=== PATIENT | male | born 1980 | race Asian ===

== ENCOUNTER 2018-05-03 10:15 | Emergency (ER) | payer OTHER ==
[~2018-05-03] VITALS: Ht 165.1 cm; Wt 81.7 kg
[~2018-05-03 10:15] MED LIST: ACET500 PO; Bactrim Ds Tab1 EACH PO; IBUP400 PO; INSU100I6 SC; Keflex500 MG PO
[2018-05-03] MEDS ORDERED: Bactrim Ds Tab1 EACH PO (10:52)
[2018-05-03] MEDS ORDERED: PIOG30 PO (10:53)
[2018-05-03] MEDS ORDERED: Glucophage1000 MG PO (10:53)
== END 2018-05-03 11:00 | disposition home or self-care (01) ==
LOC: ER 10:15
DX: L02.31 Cutaneous abscess of buttock (principal); E11.9 Type 2 diabetes mellitus without complications
CPT/HCPCS: 99282

== ENCOUNTER → 2021-10-31 | Outpatient (CLI) | payer OTHER ==
[~2021-10-31] MED LIST changes: +Glucophage1000 MG PO; +PIOG30 PO; +PROM25 PO; +Sudogest60 MG PO
== END ==
LOC: LAB 15:35 → LAB SHORT 15:35
DX: R30.0 Dysuria (principal)

== ENCOUNTER 2022-12-10 23:22 | Emergency (ER) | payer SELFPAY ==
[~2022-12-10] VITALS: Ht 165.1 cm; Wt 79.4 kg
[2022-12-10 23:28] VITALS: BP 174/98
[2022-12-11] MEDS ORDERED: TRAZ150T57 PO (01:02)
[2022-12-11] MEDS ORDERED: BUPROPION XL150 M1 PO (01:02)
[2022-12-11] MEDS ORDERED: LISINOPRIL2.5 MG PO (01:02)
[2022-12-11] MEDS ORDERED: PRAV20 PO (01:03)
[2022-12-11] MEDS ORDERED: GABA100 PO (01:03)
[2022-12-11] MEDS ORDERED: TRULICITY4.5 MG/0.5 SQ (01:05)
[2022-12-11] MEDS ORDERED: Prednisone10 MG PO (02:00)
== END 2022-12-11 02:12 | disposition home or self-care (01) ==
LOC: ER 23:22
DX: L25.9 Unspecified contact dermatitis, unspecified cause (principal); E11.9 Type 2 diabetes mellitus without complications; Z79.84 Long term (current) use of oral hypoglycemic drugs; Z79.52 Long term (current) use of systemic steroids
CPT/HCPCS: J7512

== ENCOUNTER 2025-02-19 06:38 | Day surgery (SDC) | payer OTHER ==
[2025-02-19] VITALS (16 sets, daily range): BP systolic 154–192; BP diastolic 89–115
[~2025-02-19] VITALS: Ht 164.8 cm; Wt 81.4 kg
[~2025-02-19 06:38] MED LIST changes: +BUPROPION XL150 M1 PO; +GABA100 PO; +LISINOPRIL2.5 MG PO; +PRAV20 PO; +Prednisone10 MG PO; +TRAZ150T57 PO; +TRULICITY4.5 MG/0.5 SQ
[2025-02-19] MEDS ORDERED: OZEMPIC1 MG/0.72 SC (07:19)
--- NOTE | 2025-02-19 07:27 | NUR ---
History, Chart, Medications and Allergies reviewed before start of procedure. Patient up to Ambulate independently. Gait steady. Pre-Op teaching done. Pt verbalizes understanding. Patient confirms NPO status and agrees with scheduled surgery. Patient states colon prep results light yellow. Patient States Post-Procedure ride home has been arranged.
--- NOTE | 2025-02-19 07:44 | NUR ---
02/19/25 0744 Idalia Enciso CONFIRMED AND REVIEWED H&P, MEDCICATIONS, ALLERGIES, MEDICAL HISTORY, RESPIRATORY HISTORY, VITAL SIGNS, 3-LEAD EKG, CONSENTS, AND PHYSICIAN ORDERS. PATIENT CONFIRMS NPO STATUS AND AGREES WITH SCHEDULED PROCEDURE. MONITOR INTACT WITH CONTINUOUS PULSE OXIMETRY, CAPNOGRAPHY, 3-LEAD EKG, INTERMITTENT BP. SUPPLEMENTAL O2 TO BE TITRATED THROUGHOUT PROCEDURE TO MAINTAIN O2 SATURATION ABOVE 90%. PATIENT DETERMINED TO BE ASA APPROPRIATE FOR PROPOFOL SEDATION PRIOR TO START OF PROCEDURE BY
--- NOTE | 2025-02-19 08:10 | NUR ---
Patient up to Ambulate independently. Gait steady. Discharge instructions reviewed with patient and spouse. Patient verbalizes understanding. Copy given to patient to take home. Patient States Post-Procedure ride home has been arranged. Discharged via wheelchair to private car for ride home. Pt belongings returned to pt.
== END 2025-02-19 08:17 | disposition home or self-care (01) ==
LOC: ORD 06:38 → ORSCMMR 06:38 → ORD 07:30
PROVIDERS: Internal Medicine Gastroenterology
PROC: 0DJD8ZZ Inspection of Lower Intestinal Tract, Via Natural or Artificial Opening Endoscopic (ICD-10-PCS; principal; 2025-02-19 07:30)
DX: Z12.11 Encounter for screening for malignant neoplasm of colon (principal); E11.9 Type 2 diabetes mellitus without complications; F31.9 Bipolar disorder, unspecified; Z79.85 Long-term (current) use of injectable non-insulin antidiabetic drugs; Z79.84 Long term (current) use of oral hypoglycemic drugs; Z79.899 Other long term (current) drug therapy
CPT/HCPCS: 82947; J2704; J7120

== ENCOUNTER 2025-06-15 18:13 | Emergency (ER) | payer OTHER ==
[~2025-06-15] VITALS: Ht 165.1 cm; Wt 78.5 kg
[~2025-06-15 18:13] MED LIST changes: +OZEMPIC1 MG/0.72 SC
[2025-06-15 18:32] VITALS: BP 125/80
[2025-06-15] MEDS ORDERED: Ketorolac Tromethamine 30mg Vial IM ONE (18:35)
== END 2025-06-15 20:20 | disposition home or self-care (01) ==
LOC: ER 18:13
DX: S80.812A Abrasion, left lower leg, initial encounter (principal); S80.811A Abrasion, right lower leg, initial encounter; E11.9 Type 2 diabetes mellitus without complications; Z79.84 Long term (current) use of oral hypoglycemic drugs; Z79.85 Long-term (current) use of injectable non-insulin antidiabetic drugs; Z79.899 Other long term (current) drug therapy; Z59.89 Other problems related to housing and economic circumstances; V84.7XXA Person on outside of special agricultural vehicle injured in nontraffic accident, initial encounter
CPT/HCPCS: 73562-RT; 73590; 90715; J1885